=== PATIENT | male | born 1980 | race Caucasian/White ===

== ENCOUNTER 2019-05-29 16:55 | Emergency (ER) | payer OTHER ==
[2019-05-29 17:04] VITALS: BP 152/107
--- NOTE | 2019-05-29 17:15 | UC ---
Dental HPI - HPI Summary HPI Summary: 38-year-old male who has had some right upper toothache with facial swelling today. He has a history of a broken decayed tooth. Denies any fever or chills. - History of Current Complaint Chief Complaint: UCDentalProblem Stated Complaint: TOOTH ACHE Time Seen by Provider: 05/29/19 17:14 Hx Obtained From: Patient Onset/Duration: Gradual Onset, Lasting Hours Severity: Moderate Pain Intensity: 3 Aggravating Factor(s): Nothing Alleviating Factor(s): Nothing Related History: Swelling - Allergies/Home Medications Allergies/Adverse Reactions: Allergies Allergy/AdvReac Type Severity Reaction Status Date / Time Penicillins Allergy Severe Airway Verified 05/29/19 16:59 Obstruction Home Medications: Home Medications Propranolol TAB* [Inderal TAB*] 20 mg PO BID 05/29/19 [History Confirmed ] PMH/Surg Hx/FS Hx/Imm Hx Previously Healthy: Yes Cardiovascular History: Hypertension - Surgical History Surgical History: None - Family History Known Family History: Positive: Non-Contributory - Social History Occupation: Employed Full-time Alcohol Use: Weekly Alcohol Amount: 4 DRINKS PER WEEK Substance Use Type: None Smoking Status (MU): Never Smoked Tobacco - Immunization History Most Recent Influenza Vaccination: N/A Most Recent Tetanus Shot: unable to recall Most Recent Pneumonia Vaccination: N/A Review of Systems All Other Systems Reviewed And Are Negative: Yes ENT: Positive: Dental Pain - Right upper molar is broken and decayed and patient has facial swelling today. Is Patient Immunocompromised?: No Physical Exam Triage Information Reviewed: Yes Appearance: Well-Appearing, No Pain Distress, Well-Nourished Vital Signs: Initial Vital Signs Temp 97.9 F 05/29/19 17:01 Pulse 98 05/29/19 17:01 Resp 18 05/29/19 17:01 BP 152/107 05/29/19 17:01 Pulse Ox 98 05/29/19 17:01 Vital Signs Reviewed: Yes Eyes: Positive: Conjunctiva Clear ENT: Positive: Pharynx normal, TMs normal, Uvula midline Dental: Positive: Gross Decay/Caries @ - Patient has right upper molar broken with DKA which has been a long-term problem. There is a dental abscess near tooth number 3 with a swollen erythematous gumline and tenderness on palpation. , Dental Fracture @ Neck: Positive: Supple, Nontender, No Lymphadenopathy Respiratory: Positive: Lungs clear, Normal breath sounds, No respiratory distress, No accessory muscle use Cardiovascular: Positive: RRR, No Murmur, Pulses Normal, Brisk Capillary Refill Musculoskeletal Exam: Normal Neurological Exam: Normal Psychological Exam: Normal Skin: Positive: Other - Left upper maxillary swelling. Re-Evaluation - Re-Evaluation First Eval Change: Improved - Patient states his face feels much better and the abscess continues to drain. Dry gauze is applied. Bleeding has stopped and he continues to have pus drainage. Dental Complaint Course/Dx - Course Course Of Treatment: The patient is comfortable here. He does have an abscess formation and therefore after injection of lidocaine 1% plain the abscess was incised with copious amounts of yellow purulent drainage. The patient tolerated suture well. I'm going to start her on clindamycin 3 times a day for 10 days and definite follow-up with a dentist before his prescription is complete. Take Tylenol every 4 hours or Motrin every 8 hours for pain. - Differential Dx/Diagnosis Provider Diagnosis: Dental abscess Discharge ED - Sign-Out/Discharge Documenting (check all that apply): Patient Departure All imaging exams completed and their final reports reviewed: No Studies - Discharge Plan Condition: Fair Disposition: HOME Prescriptions: Clindamycin Cap(NF) [Clindamycin Cap 300 mg Cap(NF)] 300 mg PO TID 10 Days #30 cap Patient Education Materials: Dental Abscess (ED) Referrals: Ashwin Rubio MD [Primary Care Provider] - Additional Instructions: Keep the gauze on until you have no further bleeding. May take Tylenol every 4 hours for pain. Call a dentist tomorrow and make an appointment to be seen before the antibiotic is complete. If you have any worsening symptoms, increased facial pain or swelling or difficulty breathing or swallowing you are to go to the emergency room. - Billing Disposition and Condition Condition: FAIR Disposition: Home
[2019-05-29] MEDS ORDERED: Lidocaine 1% MPF ** 5 ML VIAL INJ ONE (17:19)
== END 2019-05-29 17:56 | disposition home or self-care (01) ==
LOC: UCEAST 16:55
DX: K04.7 Periapical abscess without sinus (principal); I10 Essential (primary) hypertension; Z88.0 Allergy status to penicillin; Z79.899 Other long term (current) drug therapy
CPT/HCPCS: 41800; 99202; G0463